=== PATIENT | female | born 2000 | race Caucasian/White ===

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

== ENCOUNTER 2020-01-03 08:05 | Emergency (ER) | payer BC ==
[~2020-01-03] VITALS: Ht 170.2 cm; Wt 67.6 kg
[2020-01-03 08:15] VITALS: Ht 170.2 cm; Wt 67.6 kg
[2020-01-03 09:13] VITALS: BP 110/60
[2020-01-03 09:49] LABS: UA SPECIFIC GRAVITY >=1.030 (1.005-1.035); microscopic required? YES; urine erythrocyte 3+ (NEGATIVE)
== END 2020-01-03 09:13 | disposition home or self-care (01) ==
LOC: ED 08:05
PROVIDERS: Emergency Medicine
DX: N39.0 Urinary tract infection, site not specified (principal)

== ENCOUNTER 2020-03-02 20:55 | Emergency (ER) | payer MEDICAID ==
[~2020-03-02] VITALS: Ht 170.2 cm; Wt 64.6 kg
[2020-03-02 21:00] VITALS: BP 128/59; Ht 170.2 cm; Wt 64.6 kg
== END 2020-03-02 21:50 | disposition home or self-care (01) ==
LOC: ED 20:55
DX: N39.0 Urinary tract infection, site not specified (principal); G43.909 Migraine, unspecified, not intractable, without status migrainosus

== ENCOUNTER 2020-06-02 13:18 | Emergency (ER) | payer MEDICAID ==
[~2020-06-02] VITALS: Ht 172.7 cm; Wt 65.8 kg
[2020-06-02 14:24] VITALS: Ht 172.7 cm; Wt 65.8 kg
[2020-06-02 18:38] VITALS: BP 101/62
== END 2020-06-02 18:38 | disposition home or self-care (01) ==
LOC: ED 13:18
DX: N39.0 Urinary tract infection, site not specified (principal); G43.909 Migraine, unspecified, not intractable, without status migrainosus